=== PATIENT | female | born 1995 | race Hispanic/Latino ===

== ENCOUNTER 2017-12-23 13:04 | Emergency (ER) | payer BC, OTHER | END 2017-12-23 15:08 | disposition home or self-care (01) | LOC: EDH 13:04 | DX: T19.2XXA Foreign body in vulva and vagina, initial encounter (principal); Z79.899 Other long term (current) drug therapy; X58.XXXA Exposure to other specified factors, initial encounter; Y93.89 Activity, other specified; Y92.89 Other specified places as the place of occurrence of the external cause; Y99.8 Other external cause status ==

== ENCOUNTER 2018-11-03 10:15 | Emergency (ER) | payer BC, OTHER | END 2018-11-03 11:35 | disposition home or self-care (01) | LOC: EDH 10:15 | DX: F32.9 Major depressive disorder, single episode, unspecified (principal); Z76.0 Encounter for issue of repeat prescription; Z90.49 Acquired absence of other specified parts of digestive tract; Z90.89 Acquired absence of other organs ==

== ENCOUNTER 2018-11-10 09:12 | Inpatient (IN) | payer BC, OTHER | END 2018-11-15 13:56 | disposition home or self-care (01) | LOC: EDH 09:12 → EDHIP 11:20 → 4BH 15:21 | DX: S42.302A Unspecified fracture of shaft of humerus, left arm, initial encounter for closed fracture (principal) ==